=== PATIENT | female | born 1970 | race African-American/Black ===

== ENCOUNTER 2016-07-29 13:25 | Emergency (ER) | payer MEDICAID ==
[~2016-07-29] VITALS: Ht 152.4 cm; Wt 72.6 kg
[~2016-07-29 13:25] MED LIST: RIVA20TA PO; TRAM50TA2 PO
--- NOTE | 2016-07-29 13:41 | NUR ---
DR ESPINOZA AT THE BEDSIDE FOR EVAL AND EXAM.
[2016-07-29 13:45] VITALS: BP 115/62
--- NOTE | 2016-07-29 13:56 | NUR ---
Patient discharged to home in stable conditon. Written and verbal after care instructions given. Patient verbalizes understanding of instructions.
== END 2016-07-29 13:57 | disposition home or self-care (01) ==
LOC: ER 13:25
DX: S91.204A Unspecified open wound of right lesser toe(s) with damage to nail, initial encounter (principal); F10.20 Alcohol dependence, uncomplicated; F17.200 Nicotine dependence, unspecified, uncomplicated; G43.909 Migraine, unspecified, not intractable, without status migrainosus; X58.XXXA Exposure to other specified factors, initial encounter; Y93.89 Activity, other specified; Y99.8 Other external cause status; Y92.89 Other specified places as the place of occurrence of the external cause
CPT/HCPCS: 99283; A4663

== ENCOUNTER 2016-11-21 12:23 | Emergency (ER) | payer MEDICAID, OTHER ==
[~2016-11-21] VITALS: Ht 165.1 cm; Wt 72.6 kg
--- NOTE | 2016-11-21 12:40 | NUR ---
PT IS IN ROOM #1B. DR ROACH EVALUATED THE PT.
[2016-11-21] MEDS ORDERED: MORPHINE SULFATE 2 MG/1 ML DISP.SYRIN IV ONE (12:45)
[2016-11-21] MEDS ORDERED: ONDANSETRON 4 MG/2 ML VIAL IV ONE (12:45)
[2016-11-21 13:02] LABS: BASOPHILS % (AUTO) 0.4 % (0.0-2.0); EOSINOPHILS % (AUTO) 0.6 % (0.0-7.0); HEMATOCRIT 31.8 % (37-47); HEMOGLOBIN 10.1 G/DL (12.0-16.0); LYMPHOCYTES # (AUTO) 1.3 K/UL (0.8-4.8); LYMPHOCYTES % (AUTO) 16.2 % (20.5-51.5); MEAN CORPUSCULAR HEMOGLOBIN 25.5 UUG (27.0-31.0); MEAN CORPUSCULAR HGB CONC 32 g/dL (32.0-37.0); MEAN CORPUSCULAR VOLUME 80.4 FL (81.0-99.0); MONOCYTES # (AUTO) 0.4 K/UL (0.1-1.30); MONOCYTES % (AUTO) 4.7 % (0.0-11.0); NEUTROPHILS # (AUTO) 6.3 K/UL (1.8-8.9); NEUTROPHILS % (AUTO) 78.1 % (38.5-71.5); PLATELET COUNT (AUTO) 187 K/UL (150-450); RED BLOOD CELL COUNT(AUTO) 3.95 MIL/UL (4.2-5.4)
[2016-11-21] MEDS ORDERED: MORPHINE SULFATE 4 MG/1 ML DISP.SYRIN ONE ×2 (13:02→14:35)
[2016-11-21] MEDS ORDERED: MORPHINE SULFATE 2 MG/1 ML DISP.SYRIN ONE ×3 (13:02→15:00)
[2016-11-21] MEDS ORDERED: ONDANSETRON 4 MG/2 ML VIAL ONE ×2 (13:03→15:10)
[2016-11-21 13:17] LABS: BILIRUBIN,DIRECT 0.1 mg/dL (0.0-0.2); CREATININE 0.8 mg/dL (0.6-1.3); POTASSIUM 3.2 mmol/L (3.5-5.1)
[2016-11-21 13:44] LABS: BILIRUBIN,TOTAL 0.4 mg/dL (0.1-1.0)
[2016-11-21 13:45] LABS: TOTAL PROTEIN, SERUM 7.4 g/dL (6.4-8.2)
[2016-11-21] MEDS ORDERED: IOHEXOL 300MG/ML 100 ML INFUS..BTL ONE (13:58)
[2016-11-21] MEDS ORDERED: NORMAL SALINE FLUSH 10 ML DISP.SYRIN ONE (13:58)
[2016-11-21] MEDS ORDERED: MORPHINE SULFATE 10 MG/1 ML DISP.SYRIN IV ONE (14:30)
[2016-11-21] MEDS ORDERED: ONDANSETRON IV *ER 4 MG/2 ML VIAL ONE (15:00)
[2016-11-21] MEDS ORDERED: KETOROLAC TROMETHAMINE 15 MG INJ ONE ×2 (15:00→15:11)
[2016-11-21] MEDS ORDERED: GABAPENTIN 300 MG CAPSULE ONE ×2 (15:00→15:11)
[2016-11-21] MEDS ORDERED: MORPHINE SULFATE 10 MG/1 ML DISP.SYRIN ONE (15:00)
[2016-11-21] MEDS ORDERED: ONDANSETRON IV *ER 4 MG/2 ML VIAL IV ONE (15:00)
[2016-11-21] MEDS ORDERED: KETOROLAC TROMETHAMINE 15 MG INJ IVP ONE (15:00)
[2016-11-21] MEDS ORDERED: GABAPENTIN 300 MG CAPSULE PO ONE (15:00)
--- NOTE | 2016-11-21 15:27 | NUR ---
Information for higher level of care transfer faxed to [facility], awaiting response from their MD.
[2016-11-21 16:00] LABS: *BILIRUBIN,URIN NEGATIVE (NEGATIVE); *BLOOD, URINE Trace-intact (NEGATIVE); *CLARITY,URINE CLEAR (CLEAR); *COLOR,URINE YELLOW (YELLOW); *KETONES,URINE NEGATIVE (NEGATIVE); *PROTEIN,URINE TRACE (NEGATIVE); *UROBILINOGEN,URINE 0.2 E.U./dl (NORMAL); LEUKOCYTE ESTERASE ,URINE NEGATIVE (NEGATIVE); NITRITE, URINE NEGATIVE (NEGATIVE); UGLUCOSE NEGATIVE (NEGATIVE)
--- NOTE | 2016-11-21 16:06 | NUR ---
Call placed to [facility] for transfer status, awaiting accepting MD. LAN notified.
[2016-11-21 16:10] LABS: *URINE HCG, QUAL NEGATIVE (NEGATIVE); MUCUS,URINE FEW /LPF (0-FEW); SQUAMOUS EPITHELIAL CELL,UR FEW /HPF (NONE SEEN); WBC,URINE 0-3 /HPF (0-3)
--- NOTE | 2016-11-21 16:21 | NUR ---
pt is accepted by Dr Tucker from [facility]. [facility] was called to transfer the pt according to trauma surgion request. nursing dock operations supervisor notified.
--- NOTE | 2016-11-21 16:29 | NUR ---
[facility] WAS CALL[facility] . PT WAS TRANSFERED TO [facility] ACCORDING TO DR ROACH ORDERS. REPORT WAS GIVEN TO [facility].
== END 2016-11-21 16:33 | disposition short-term general hospital (02) ==
LOC: ER 12:23
DX: S27.321A Contusion of lung, unilateral, initial encounter (principal); F17.200 Nicotine dependence, unspecified, uncomplicated; G43.909 Migraine, unspecified, not intractable, without status migrainosus; V89.2XXA Person injured in unspecified motor-vehicle accident, traffic, initial encounter; Y93.89 Activity, other specified; Y92.9 Unspecified place or not applicable; Y99.9 Unspecified external cause status
CPT/HCPCS: 36415; 70030-TC; 70450; 71010; 71260; 72125; 73590; 84703; 85025; 85730; 86850; 86900; 86901; 93005; A4663; J1885; J2270; J2405

== ENCOUNTER 2017-04-07 11:36 | Emergency (ER) | payer MEDICAID, OTHER ==
[~2017-04-07] VITALS: Ht 165.1 cm; Wt 63.5 kg
[2017-04-07] MEDS: KETOROLAC TROMETHAMINE 30 MG INJ IM ONE (11:57)
[2017-04-07] MEDS: CARISOPRODOL 350 MG TABLET PO ONE (11:58)
--- NOTE | 2017-04-07 12:03 | NUR ---
Patient discharged to home in stable conditon. Written and verbal after care instructions given. Patient verbalizes understanding of instructions.pt needs more time in ed so she feels comfortable to walk.
[2017-04-07] MEDS ORDERED: KETOROLAC TROMETHAMINE 30 MG INJ ONE (12:10)
[2017-04-07] MEDS ORDERED: CARISOPRODOL 350 MG TABLET ONE (12:11)
--- NOTE | 2017-04-07 12:58 | NUR ---
pt says feels better. 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
[2017-04-07 13:00] VITALS: BP 119/81
== END 2017-04-07 13:00 | disposition home or self-care (01) ==
LOC: ER 11:36
DX: M54.40 Lumbago with sciatica, unspecified side (principal); F17.200 Nicotine dependence, unspecified, uncomplicated; G43.909 Migraine, unspecified, not intractable, without status migrainosus
CPT/HCPCS: 96372; 99283; A4663; J1885

== ENCOUNTER 2017-05-09 14:30 | Emergency (ER) | payer MEDICAID ==
[~2017-05-09] VITALS: Ht 165.1 cm; Wt 63.5 kg
[2017-05-09] MEDS ORDERED: ONDA4TAB5 PO (14:39)
[2017-05-09] MEDS ORDERED: HYDR-548 PO (14:39)
[2017-05-09 15:24] VITALS: BP 117/71
== END 2017-05-09 15:27 | disposition home or self-care (01) ==
LOC: ER 14:33
DX: M79.671 Pain in right foot (principal); F17.200 Nicotine dependence, unspecified, uncomplicated; G43.909 Migraine, unspecified, not intractable, without status migrainosus
CPT/HCPCS: A4663

== ENCOUNTER 2017-09-01 18:24 | Emergency (ER) | payer MEDICAID ==
[~2017-09-01] VITALS: Ht 165.1 cm; Wt 63.5 kg
[~2017-09-01 18:24] MED LIST changes: +HYDR-548 PO; +ONDA4TAB5 PO
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
--- NOTE | 2017-09-01 19:35 | NUR ---
DR ELOY NAVARRO MD AT BEDSIDE FOR MSE.
--- NOTE | 2017-09-01 20:02 | NUR ---
RADIOLOGY AT BEDSIDE FOR XRAY.
[2017-09-01] MEDS ORDERED: AZITHROMYCIN 250 MG TABLET PO ONE (20:30)
[2017-09-01] MEDS ORDERED: AZITHROMYCIN 250 MG TABLET ONE (20:37)
--- NOTE | 2017-09-01 20:52 | NUR ---
Patient discharged to home in stable conditon. Written and verbal after care instructions given. Patient verbalizes understanding of instructions. Pt ambulated from ER w/ stead gait. Denies n/v sob, or pain. No distress noted. Pt took all personal belongings.
[2017-09-01 20:57] VITALS: BP 112/70
== END 2017-09-01 21:06 | disposition home or self-care (01) ==
LOC: ER 18:26
DX: J06.9 Acute upper respiratory infection, unspecified (principal); R05 Cough; F17.200 Nicotine dependence, unspecified, uncomplicated; G43.909 Migraine, unspecified, not intractable, without status migrainosus
CPT/HCPCS: 71045; A4663; Q0144

== ENCOUNTER 2018-03-09 19:04 | Emergency (ER) | payer MEDICAID ==
[~2018-03-09] VITALS: Ht 165.1 cm; Wt 68.0 kg
[~2018-03-09 19:04] MED LIST changes: +HYDR-4354 PO; -HYDR-548 PO
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
--- NOTE | 2018-03-09 19:35 | NUR ---
RAMON MONTERO AT BEDSIDE FOR MSE.
--- NOTE | 2018-03-09 19:54 | NUR ---
PT TAKEN TO RADIOLOGY FOR CT SCAN.
--- NOTE | 2018-03-09 20:08 | NUR ---
PT BACK IN DEPARTMENT FROM RADIOLOGY.
[2018-03-09] MEDS ORDERED: IBUPROFEN 600 MG TABLET ONE (20:43)
[2018-03-09] MEDS ORDERED: IBUPROFEN 600 MG TABLET PO ONE (20:45)
--- NOTE | 2018-03-09 21:08 | NUR ---
Patient discharged to home in stable conditon. Written and verbal after care instructions given. Patient verbalizes understanding of instructions. Walked out of ER with no distress noted
[2018-03-09 21:09] VITALS: BP 128/66
== END 2018-03-09 21:09 | disposition home or self-care (01) ==
LOC: ER 19:06
DX: S16.1XXA Strain of muscle, fascia and tendon at neck level, initial encounter (principal); F17.200 Nicotine dependence, unspecified, uncomplicated; V89.2XXA Person injured in unspecified motor-vehicle accident, traffic, initial encounter; Y93.89 Activity, other specified; Y92.89 Other specified places as the place of occurrence of the external cause; Y99.8 Other external cause status
CPT/HCPCS: 72125; A4663

== ENCOUNTER 2018-04-01 18:08 | Emergency (ER) | payer MEDICAID ==
[~2018-04-01] VITALS: Ht 165.1 cm; Wt 63.5 kg
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
--- NOTE | 2018-04-01 19:32 | NUR ---
Patient discharged to home in stable conditon. Written and verbal after care instructions given. Patient verbalizes understanding of instructions.
== END 2018-04-01 19:33 | disposition home or self-care (01) ==
LOC: ER 18:10
DX: M25.511 Pain in right shoulder (principal); Z71.6 Tobacco abuse counseling; F17.290 Nicotine dependence, other tobacco product, uncomplicated; Z79.891 Long term (current) use of opiate analgesic; Z79.899 Other long term (current) drug therapy
CPT/HCPCS: A4663

== ENCOUNTER 2018-05-06 18:39 | Inpatient (IN) | payer MEDICAID ==
[~2018-05-06] VITALS: Ht 165.1 cm; Wt 72.6 kg
[2018-05-06] MEDS ORDERED: GABA300C PO (18:51)
[2018-05-06] MEDS ORDERED: D-ME118S12 PO (18:51)
[2018-05-06] MEDS ORDERED: KETOROLAC TROMETHAMINE 15 MG INJ IV ONE (19:15)
[2018-05-06] MEDS ORDERED: ONDANSETRON 4 MG/2 ML VIAL IV ONE (19:15)
[2018-05-06] MEDS ORDERED: OXYCODONE/APAP 5-325 MG TABLET PO ONE ×2 (19:15→20:30)
[2018-05-06] MEDS ORDERED: IV NORMAL SALINE 1000 ML BAG IV ONE (19:15)
[2018-05-06] MEDS ORDERED: ONDANSETRON 4 MG/2 ML VIAL ONE ×2 (19:40→20:36)
[2018-05-06] MEDS ORDERED: KETOROLAC TROMETHAMINE 30 MG INJ ONE (19:40)
[2018-05-06 19:44] LABS: *BILIRUBIN,URIN NEGATIVE (NEGATIVE); *BLOOD, URINE Trace-lysed (NEGATIVE); *CLARITY,URINE CLOUDY (CLEAR); *COLOR,URINE YELLOW (YELLOW); *KETONES,URINE NEGATIVE (NEGATIVE); *UROBILINOGEN,URINE 0.2 E.U./dl (NORMAL); LEUKOCYTE ESTERASE ,URINE 1+ (NEGATIVE); NITRITE, URINE NEGATIVE (NEGATIVE); PH,URINE 7.5 (5.0-8.0); UGLUCOSE NEGATIVE (NEGATIVE)
[2018-05-06 19:50] LABS: CREATININE 0.8 mg/dL (0.6-1.3); POTASSIUM 3.9 mmol/L (3.5-5.1)
[2018-05-06 19:51] LABS: *URINE HCG, QUAL NEGATIVE (NEGATIVE)
[2018-05-06] MEDS ORDERED: OXYCODONE/APAP 5-325 MG TABLET ONE ×2 (19:54→20:36)
[2018-05-06 19:55] LABS: BASOPHILS % (AUTO) 0.3 % (0.0-2.0); EOSINOPHILS % (AUTO) 0.1 % (0.0-7.0); HEMATOCRIT 32.4 % (31.2-41.9); HEMOGLOBIN 10.3 g/dL (10.9-14.3); LYMPHOCYTES % (AUTO) 15.3 % (20.5-51.5); MEAN CORPUSCULAR HEMOGLOBIN 24.5 uug (24.7-32.8); MEAN CORPUSCULAR HGB CONC 32 g/dL (32.3-35.6); MEAN CORPUSCULAR VOLUME 77.2 fL (75.5-95.3); MONOCYTES # (AUTO) 1.2 K/uL (2.0-10.0); MONOCYTES % (AUTO) 8.7 % (0.0-11.0); NEUTROPHILS # (AUTO) 10.1 K/uL (1.8-8.9); NEUTROPHILS % (AUTO) 75.6 % (38.5-71.5); PLATELET COUNT (AUTO) 206 K/uL (179-408); WHITE BLOOD COUNT (AUTO) 13.4 K/uL (3.8-11.8)
[2018-05-06 20:03] LABS: BACTERIA,URINE MODERATE /HPF (NONE SEEN); SQUAMOUS EPITHELIAL CELL,UR MANY /HPF (NONE SEEN)
[2018-05-06 20:04] LABS: BILIRUBIN,DIRECT 0.1 mg/dL (0.0-0.2); BILIRUBIN,TOTAL 0.4 mg/dL (0.2-1.0); TOTAL PROTEIN, SERUM 7.6 g/dL (6.4-8.2)
[2018-05-06] MEDS ORDERED: NITROFURANTOIN/NITROFURAN MAC 100 MG CAPSULE PO ONE (20:30)
[2018-05-06] MEDS ORDERED: ONDANSETRON IV *ER 4 MG/2 ML VIAL IV ONE (20:30)
[2018-05-06] MEDS ORDERED: CEFTRIAXONE 1 G in IV DEXTROSE 5% 50 ML IV ONE (20:30)
[2018-05-06] MEDS ORDERED: CEFTRIAXONE 1 G VIAL ONE (20:35)
[2018-05-06] MEDS ORDERED: NITROFURANTOIN/NITROFURAN MAC 100 MG CAPSULE ONE (20:36)
[2018-05-06] MEDS ORDERED: TRAMADOL HCL 50 MG TABLET PO PRN (21:45)
[2018-05-06] MEDS ORDERED: IV NS 1000 ML 1,000 ML IV PRN (22:06)
[2018-05-06] MEDS ORDERED: ONDANSETRON 4 MG/2 ML VIAL IV PRN (22:15)
[2018-05-06] MEDS ORDERED: ACETAMINOPHEN 325 MG TABLET PO PRN (22:15)
[2018-05-06] MEDS ORDERED: IBUPROFEN 600 MG TABLET PO PRN (22:15)
[2018-05-06] MEDS ORDERED: Z GUARD REMEDY PASTE 57 GM TUBE TOP PRN (22:15)
[2018-05-06 22:56] VITALS: BP 106/63
[2018-05-07 04:00] VITALS: BP 115/57
[2018-05-07 05:54] LABS: BASOPHILS % (AUTO) 0.4 % (0.0-2.0); EOSINOPHILS # (AUTO) 0.1 K/uL (0.0-0.7); EOSINOPHILS % (AUTO) 0.9 % (0.0-7.0); HEMATOCRIT 28.3 % (31.2-41.9); HEMOGLOBIN 9.1 g/dL (10.9-14.3); LYMPHOCYTES # (AUTO) 2.4 K/uL (20.0-40.0); LYMPHOCYTES % (AUTO) 25.7 % (20.5-51.5); MEAN CORPUSCULAR HEMOGLOBIN 24.8 uug (24.7-32.8); MEAN CORPUSCULAR HGB CONC 32 g/dL (32.3-35.6); MEAN CORPUSCULAR VOLUME 77.5 fL (75.5-95.3); MONOCYTES # (AUTO) 1.3 K/uL (2.0-10.0); MONOCYTES % (AUTO) 14.3 % (0.0-11.0); NEUTROPHILS # (AUTO) 5.5 K/uL (1.8-8.9); NEUTROPHILS % (AUTO) 58.7 % (38.5-71.5); PLATELET COUNT (AUTO) 165 K/uL (179-408); RED BLOOD CELL COUNT(AUTO) 3.65 MIL/uL (3.63-4.92); WHITE BLOOD COUNT (AUTO) 9.3 K/uL (3.8-11.8)
[2018-05-07 06:08] LABS: CREATININE 0.7 mg/dL (0.6-1.3); MAGNESIUM 2.2 mg/dL (1.8-2.4); PHOSPHOROUS 3.8 mg/dL (2.5-4.9); POTASSIUM 3.7 mmol/L (3.5-5.1)
[2018-05-07] MEDS: GABAPENTIN 300 MG CAPSULE PO SCH ×2 (08:46→13:45)
[2018-05-07] MEDS ORDERED: FAMO20TA8 PO (10:32)
[2018-05-07] MEDS ORDERED: RIVAROXABAN 15 MG TABLET PO SCH (10:32)
[2018-05-07] MEDS ORDERED: AZIT250T13 PO (10:32)
[2018-05-07] MEDS ORDERED: ALBU18HF2 INH (10:32)
[2018-05-07] MEDS ORDERED: ALBUTEROL SULFATE 8 GM HFA.AER.AD INH PRN (11:30)
[2018-05-07 11:35] VITALS: BP 112/61
[2018-05-07] MEDS ORDERED: ALBUTEROL SULFATE 2.5 MG/3 ML NEBU NEB PRN (11:45)
[2018-05-07] MEDS ORDERED: GUAIFENESIN/DEXTROMETHORPHAN 5 ML UDC PO PRN (13:00)
[2018-05-07] MEDS ORDERED: FAMOTIDINE 20 MG TABLET PO ONE (13:15)
[2018-05-07] MEDS ORDERED: FAMOTIDINE 20 MG TABLET PO SCH (17:00)
[2018-05-07] MEDS ORDERED: CEFTRIAXONE 1 G in IV DEXTROSE 5% 50 ML IV SCH (21:00)
== END 2018-05-07 15:20 | disposition home or self-care (01) | DRG 463 ==
LOC: ER 18:41 → MED 21:41
PROVIDERS: ADMIT Nurse Practitioner Acute Care; ATTEND Registered Nurse
DX: N10 Acute pyelonephritis (principal); E66.9 Obesity, unspecified; B96.89 Other specified bacterial agents as the cause of diseases classified elsewhere; G89.29 Other chronic pain; M54.5 Low back pain; Z86.718 Personal history of other venous thrombosis and embolism; Z79.01 Long term (current) use of anticoagulants; G43.909 Migraine, unspecified, not intractable, without status migrainosus; F17.200 Nicotine dependence, unspecified, uncomplicated; J40 Bronchitis, not specified as acute or chronic; Z68.26 Body mass index [BMI] 26.0-26.9, adult; Z71.3 Dietary counseling and surveillance; R53.1 Weakness; Z79.899 Other long term (current) drug therapy; L02.91 Cutaneous abscess, unspecified; N39.0 Urinary tract infection, site not specified
CPT/HCPCS: 36415; 71045; 83690; 83735; 84100; 84703; 85025; 85730; 93005; A4663; G0378; J0696; J1885; J2405; J7030; J7060

== ENCOUNTER 2018-05-28 02:46 | Emergency (ER) | payer MEDICAID, OTHER ==
[~2018-05-28] VITALS: Ht 165.1 cm; Wt 72.6 kg
[~2018-05-28 02:46] MED LIST changes: +ALBU18HF2 INH; +D-ME118S12 PO; +FAMO20TA8 PO; +GABA300C PO; -HYDR-4354 PO; -ONDA4TAB5 PO
[2018-05-28 03:05] VITALS: BP 134/89
--- NOTE | 2018-05-28 03:12 | NUR ---
Patient discharged to home in stable conditon. Written and verbal after care instructions given. Patient verbalizes understanding of instructions.
== END 2018-05-28 03:12 | disposition home or self-care (01) ==
LOC: ER 02:46
DX: S00.261A Insect bite (nonvenomous) of right eyelid and periocular area, initial encounter (principal); L08.9 Local infection of the skin and subcutaneous tissue, unspecified; G89.29 Other chronic pain; M54.9 Dorsalgia, unspecified; F17.200 Nicotine dependence, unspecified, uncomplicated; Z79.891 Long term (current) use of opiate analgesic; Z79.899 Other long term (current) drug therapy; W57.XXXA Bitten or stung by nonvenomous insect and other nonvenomous arthropods, initial encounter; Y93.89 Activity, other specified; Y92.89 Other specified places as the place of occurrence of the external cause; Y99.8 Other external cause status
CPT/HCPCS: A4663

== ENCOUNTER 2018-08-25 15:15 | Emergency (ER) | payer MEDICAID, OTHER ==
[~2018-08-25] VITALS: Ht 165.1 cm; Wt 72.6 kg
[2018-08-25] MEDS ORDERED: MORPHINE SULFATE 4 MG/1 ML DISP.SYRIN ONE (16:11)
[2018-08-25] MEDS ORDERED: ONDANSETRON HCL 4 MG TABLET ONE (16:12)
[2018-08-25] MEDS ORDERED: ONDANSETRON 4 MG/2 ML VIAL IM ONE (16:15)
[2018-08-25] MEDS ORDERED: MORPHINE SULFATE 4 MG/1 ML DISP.SYRIN IM ONE (16:15)
[2018-08-25] MEDS ORDERED: ONDANSETRON ODT 4 MG TAB.RAPDIS SL ONE (16:30)
--- NOTE | 2018-08-25 16:30 | NUR ---
Patient discharged to home in stable conditon. Written and verbal after care instructions given. Patient verbalizes understanding of instructions.
== END 2018-08-25 16:32 | disposition home or self-care (01) ==
LOC: ER 15:17
DX: S69.91XA Unspecified injury of right wrist, hand and finger(s), initial encounter (principal); Z79.899 Other long term (current) drug therapy; X58.XXXA Exposure to other specified factors, initial encounter; Y93.89 Activity, other specified; Y92.89 Other specified places as the place of occurrence of the external cause; Y99.8 Other external cause status
CPT/HCPCS: 96372; 99283; J2270; A4663; Q0162

== ENCOUNTER 2018-10-01 14:20 | Emergency (ER) | payer MEDICAID, OTHER ==
[~2018-10-01] VITALS: Ht 152.4 cm; Wt 68.0 kg
--- NOTE | 2018-10-01 15:17 | NUR ---
PT IS IN ROOM #2A. DR HOOKER EVALUATED THE PT.
--- NOTE | 2018-10-01 16:09 | NUR ---
PT WAS EVALUATED BY DR HOOKER. PT WAS D/C'd TO HOME. D.C INSTRUCTIONS GIVEN TO THE PT.
[2018-10-01 16:12] VITALS: BP 138/78
== END 2018-10-01 16:13 | disposition home or self-care (01) ==
LOC: ER 14:20
DX: L73.9 Follicular disorder, unspecified (principal); K21.9 Gastro-esophageal reflux disease without esophagitis; Z79.899 Other long term (current) drug therapy
CPT/HCPCS: A4663

== ENCOUNTER 2018-11-07 14:32 | Emergency (ER) | payer MEDICAID, OTHER ==
[~2018-11-07] VITALS: Ht 165.1 cm; Wt 63.5 kg
[~2018-11-07 14:32] MED LIST changes: -D-ME118S12 PO; +PROM118S4 PO
--- NOTE | 2018-11-07 15:43 | NUR ---
at bedside to examine patient.
--- NOTE | 2018-11-07 15:53 | NUR ---
Patient in bed resting no distress noted.
[2018-11-07 17:47] VITALS: BP 142/68
[2018-11-07] MEDS ORDERED: ACETAMINOPHEN 325 MG TABLET ONE ×2 (17:56→17:57)
[2018-11-07] MEDS ORDERED: ACETAMINOPHEN 325 MG TABLET PO ONE (18:00)
--- NOTE | 2018-11-07 18:20 | NUR ---
dcd instructions and prescription given to pt. who verbalized understanding. pt. left room AAOX4. pain well controlled. steady gait.
[2018-11-07] MEDS ORDERED: DIAZEPAM 2 MG TABLET PO ONE (18:45)
[2018-11-07] MEDS ORDERED: DIAZEPAM 5 MG TABLET ONE (18:49)
== END 2018-11-07 18:48 | disposition home or self-care (01) ==
LOC: ER 14:32
DX: S16.1XXA Strain of muscle, fascia and tendon at neck level, initial encounter (principal); M62.838 Other muscle spasm; G43.909 Migraine, unspecified, not intractable, without status migrainosus; K21.9 Gastro-esophageal reflux disease without esophagitis; Z79.899 Other long term (current) drug therapy; V49.9XXA Car occupant (driver) (passenger) injured in unspecified traffic accident, initial encounter; Y93.89 Activity, other specified; Y92.410 Unspecified street and highway as the place of occurrence of the external cause; Y99.8 Other external cause status
CPT/HCPCS: 70450; 71045; 72125; 73030; A4663

== ENCOUNTER 2018-12-19 09:01 | Emergency (ER) | payer OTHER ==
[~2018-12-19] VITALS: Ht 165.1 cm; Wt 63.5 kg
--- NOTE | 2018-12-19 09:05 | NUR ---
RAMON MONTERO AT BEDSIDE FOR MSE.
[2018-12-19] MEDS ORDERED: predniSONE 10 MG TABLET PO ONE (09:15)
[2018-12-19] MEDS ORDERED: IPRATROPIUM BROMIDE 0.5 MG/2.5 ML NEBU NEB ONE (09:15)
[2018-12-19] MEDS ORDERED: ALBUTEROL SULFATE 2.5 MG/3 ML NEBU NEB ONE (09:15)
[2018-12-19] MEDS ORDERED: predniSONE 10 MG TABLET ONE (09:16)
[2018-12-19 09:17] LABS: *BILIRUBIN,URIN NEGATIVE (NEGATIVE); *CLARITY,URINE CLEAR (CLEAR); *COLOR,URINE YELLOW (YELLOW); *KETONES,URINE NEGATIVE (NEGATIVE); *UROBILINOGEN,URINE 0.2 E.U./dl (NORMAL); LEUKOCYTE ESTERASE ,URINE NEGATIVE (NEGATIVE); NITRITE, URINE NEGATIVE (NEGATIVE); PH,URINE 5.5 (5.0-8.0); UGLUCOSE NEGATIVE (NEGATIVE)
[2018-12-19] MEDS ORDERED: predniSONE 50 MG TABLET ONE (09:17)
[2018-12-19] MEDS ORDERED: IPRATROPIUM BROMIDE 0.5 MG/2.5 ML NEBU ONE (09:19)
[2018-12-19] MEDS ORDERED: ALBUTEROL SULFATE 2.5 MG/3 ML NEBU ONE ×2 (09:19→09:23)
[2018-12-19 09:24] LABS: *BLOOD, URINE TRACE INTACT (NEGATIVE); SQUAMOUS EPITHELIAL CELL,UR FEW /HPF (NONE SEEN)
[2018-12-19 09:25] LABS: BACTERIA,URINE NONE SEEN /HPF (NONE SEEN); RBC,URINE 0-3 /HPF (0-3); WBC,URINE 0-3 /HPF (0-3)
--- NOTE | 2018-12-19 09:31 | NUR ---
PT IS ON HHN [place], NAD NOTED.
--- NOTE | 2018-12-19 09:56 | NUR ---
RAMON MONTERO AT BEDSIDE FOR PT UPDATE.
--- NOTE | 2018-12-19 10:05 | NUR ---
Patient discharged to home in stable conditon. Written and verbal after care instructions given. Patient verbalizes understanding of instructions.
== END 2018-12-19 10:06 | disposition home or self-care (01) ==
LOC: ER 09:01
DX: J45.909 Unspecified asthma, uncomplicated (principal); K21.9 Gastro-esophageal reflux disease without esophagitis; G43.909 Migraine, unspecified, not intractable, without status migrainosus; Z79.899 Other long term (current) drug therapy
CPT/HCPCS: 71045; 81000; 81001; 87086; 94640; 99284; J7512 ×2; A4663; J3590

== ENCOUNTER 2019-01-17 11:17 | Emergency (ER) | payer OTHER ==
[~2019-01-17] VITALS: Ht 165.1 cm; Wt 63.5 kg
[2019-01-17] MEDS ORDERED: IPRATROPIUM BROMIDE 0.5 MG/2.5 ML NEBU ONE (11:59)
[2019-01-17] MEDS ORDERED: ALBUTEROL SULFATE 2.5 MG/ 0.5 ML NEBU ONE (12:00)
[2019-01-17] MEDS ORDERED: IPRATROPIUM BROMIDE 0.5 MG/2.5 ML NEBU NEB ONE (12:00)
[2019-01-17] MEDS ORDERED: ALBUTEROL SULFATE 2.5 MG/3 ML NEBU NEB ONE (12:00)
[2019-01-17] MEDS ORDERED: methylPREDNISolone SOD SUCC 125 MG/2 ML VIAL IV ONE (12:00)
[2019-01-17 12:02] LABS: BASOPHILS % (AUTO) 0.6 % (0.0-2.0); EOSINOPHILS # (AUTO) 0.1 K/uL (0.0-0.7); EOSINOPHILS % (AUTO) 0.9 % (0.0-7.0); HEMATOCRIT 35.1 % (31.2-41.9); HEMOGLOBIN 11.3 g/dL (10.9-14.3); LYMPHOCYTES # (AUTO) 1.6 K/uL (20.0-40.0); LYMPHOCYTES % (AUTO) 21.6 % (20.5-51.5); MEAN CORPUSCULAR HEMOGLOBIN 27.6 uug (24.7-32.8); MEAN CORPUSCULAR HGB CONC 32 g/dL (32.3-35.6); MEAN CORPUSCULAR VOLUME 85.6 fL (75.5-95.3); MONOCYTES # (AUTO) 0.6 K/uL (2.0-10.0); MONOCYTES % (AUTO) 7.6 % (0.0-11.0); NEUTROPHILS # (AUTO) 5.2 K/uL (1.8-8.9); NEUTROPHILS % (AUTO) 69.3 % (38.5-71.5); PLATELET COUNT (AUTO) 162 K/uL (179-408); WHITE BLOOD COUNT (AUTO) 7.5 K/uL (3.8-11.8)
[2019-01-17] MEDS ORDERED: methylPREDNISolone SOD SUCC 125 MG/2 ML VIAL ONE (12:04)
[2019-01-17 12:09] LABS: CREATININE 0.7 mg/dL (0.6-1.3); POTASSIUM 3.6 mmol/L (3.5-5.1)
[2019-01-17 12:15] LABS: BILIRUBIN,DIRECT 0.1 mg/dL (0.0-0.2); BILIRUBIN,TOTAL 0.6 mg/dL (0.2-1.0); TOTAL PROTEIN, SERUM 6.9 g/dL (6.4-8.2)
--- NOTE | 2019-01-17 12:58 | NUR ---
Patient is resting comfortably on gurney, NAD.
--- NOTE | 2019-01-17 13:19 | NUR ---
IV removed. Catheter intact and site benign. Pressure and 4x4 gauze applied to site. No bleeding noted. Patient discharged to home in stable conditon. Written and verbal after care instructions given to patient. Patient verbalizes understanding of instructions.
[2019-01-17 13:24] LABS: *URINE HCG, QUAL NEGATIVE (NEGATIVE)
== END 2019-01-17 13:19 | disposition home or self-care (01) ==
LOC: ER 11:17
DX: J45.901 Unspecified asthma with (acute) exacerbation (principal); G43.909 Migraine, unspecified, not intractable, without status migrainosus; K21.9 Gastro-esophageal reflux disease without esophagitis; Z79.899 Other long term (current) drug therapy
CPT/HCPCS: 36415; 71046; 80048; 80076; 84484; 84703; 85025; 93005; 94644; 96374; 99285; J2930; 70030-TC; A4663; J3590

== ENCOUNTER 2019-01-25 21:17 | Emergency (ER) | payer OTHER ==
[~2019-01-25] VITALS: Ht 165.1 cm; Wt 63.5 kg
--- NOTE | 2019-01-25 23:12 | NUR ---
Call placed to [facility] for round trip to [place] [facility] for CT, ETA 0110, Trip #[id number].
[2019-01-25] MEDS ORDERED: METOCLOPRAMIDE HCL 10 MG/2 ML VIAL IM ONE (23:15)
[2019-01-25] MEDS ORDERED: PSEUDOEPHEDRINE HCL 30 MG TABLET PO ONE (23:15)
[2019-01-25] MEDS ORDERED: diphenhydrAMINE 50 MG/1 ML VIAL IM ONE (23:15)
[2019-01-25] MEDS ORDERED: diphenhydrAMINE 25 MG CAP PO ONE (23:40)
[2019-01-25] MEDS ORDERED: PSEUDOEPHEDRINE HCL 30 MG TABLET ONE (23:41)
[2019-01-26] MEDS ORDERED: HYDROCODONE/APAP 5-325MG TABLET ONE (00:17)
[2019-01-26] MEDS ORDERED: HYDROCODONE/APAP 5-325MG TABLET PO ONE (00:30)
[2019-01-26 02:28] VITALS: BP 116/62
== END 2019-01-26 02:30 | disposition home or self-care (01) ==
LOC: ER 21:18
DX: G43.909 Migraine, unspecified, not intractable, without status migrainosus (principal); J40 Bronchitis, not specified as acute or chronic; K21.9 Gastro-esophageal reflux disease without esophagitis; Z79.899 Other long term (current) drug therapy
CPT/HCPCS: 70450; 96372 ×2; 99284; Q0163; A4663

== ENCOUNTER 2019-03-14 15:25 | Emergency (ER) | payer OTHER ==
[~2019-03-14] VITALS: Ht 165.1 cm; Wt 63.5 kg
[2019-03-14] MEDS ORDERED: HYDROMORPHONE 1 MG/1 ML DISP.SYRIN IV ONE (16:30)
[2019-03-14] MEDS ORDERED: IV NORMAL SALINE 1000 ML BAG IV ONE (16:30)
[2019-03-14] MEDS ORDERED: KETOROLAC TROMETHAMINE 30 MG INJ IVP ONE (16:30)
[2019-03-14] MEDS ORDERED: ONDANSETRON 4 MG/2 ML VIAL IV ONE (16:30)
[2019-03-14 16:39] LABS: *CLARITY,URINE CLEAR (CLEAR); *COLOR,URINE YELLOW (YELLOW); *KETONES,URINE TRACE (NEGATIVE); *UROBILINOGEN,URINE 0.2 E.U./dl (NORMAL); LEUKOCYTE ESTERASE ,URINE NEGATIVE (NEGATIVE); NITRITE, URINE NEGATIVE (NEGATIVE); UGLUCOSE NEGATIVE (NEGATIVE)
[2019-03-14] MEDS ORDERED: KETOROLAC TROMETHAMINE 30 MG INJ ONE (16:42)
[2019-03-14] MEDS ORDERED: ONDANSETRON 4 MG/2 ML VIAL ONE (16:42)
[2019-03-14] MEDS ORDERED: HYDROMORPHONE 1 MG/1 ML DISP.SYRIN ONE (16:42)
[2019-03-14 16:44] LABS: BASOPHILS % (AUTO) 0.5 % (0.0-2.0); EOSINOPHILS % (AUTO) 0.5 % (0.0-7.0); HEMATOCRIT 39.6 % (31.2-41.9); HEMOGLOBIN 12.7 g/dL (10.9-14.3); LYMPHOCYTES # (AUTO) 2.3 K/uL (20.0-40.0); LYMPHOCYTES % (AUTO) 30.4 % (20.5-51.5); MEAN CORPUSCULAR HEMOGLOBIN 27.9 uug (24.7-32.8); MEAN CORPUSCULAR HGB CONC 32 g/dL (32.3-35.6); MEAN CORPUSCULAR VOLUME 86.9 fL (75.5-95.3); MONOCYTES # (AUTO) 0.6 K/uL (2.0-10.0); MONOCYTES % (AUTO) 8.1 % (0.0-11.0); NEUTROPHILS # (AUTO) 4.6 K/uL (1.8-8.9); NEUTROPHILS % (AUTO) 60.5 % (38.5-71.5); PLATELET COUNT (AUTO) 178 K/uL (179-408); RED BLOOD CELL COUNT(AUTO) 4.56 MIL/uL (3.63-4.92); WHITE BLOOD COUNT (AUTO) 7.6 K/uL (3.8-11.8)
[2019-03-14 16:45] LABS: *URINE HCG, QUAL NEGATIVE (NEGATIVE)
[2019-03-14 16:47] LABS: *BILIRUBIN,URIN 1+ (NEGATIVE); *BLOOD, URINE TRACE (NEGATIVE)
[2019-03-14 16:54] LABS: CREATININE 0.8 mg/dL (0.6-1.3); POTASSIUM 3.5 mmol/L (3.5-5.1)
[2019-03-14 17:00] LABS: BILIRUBIN,DIRECT 0.1 mg/dL (0.0-0.2); BILIRUBIN,TOTAL 0.6 mg/dL (0.2-1.0); TOTAL PROTEIN, SERUM 7.5 g/dL (6.4-8.2)
[2019-03-14 17:06] LABS: WBC,URINE 0-3 /HPF (0-3)
--- NOTE | 2019-03-14 17:06 | NUR ---
PT IS IN ROOM #1A. DR MEDEIROS EVALUATED THE PT.
[2019-03-14 17:08] LABS: BACTERIA,URINE FEW /HPF (NONE SEEN); SQUAMOUS EPITHELIAL CELL,UR MODERATE /HPF (NONE SEEN)
[2019-03-14 17:09] LABS: MUCUS,URINE MANY /LPF (0-FEW)
[2019-03-14] MEDS ORDERED: IOHEXOL 300MG/ML 100 ML INFUS..BTL ONE (17:41)
[2019-03-14] MEDS ORDERED: IV NORMAL SALINE 250 ML IV ONE (17:41)
[2019-03-14] MEDS ORDERED: SWABABLE VALVE TRANSFER SET EA MC ONE (17:41)
--- NOTE | 2019-03-14 19:18 | NUR ---
Pt back to ER from CT.
--- NOTE | 2019-03-14 20:18 | NUR ---
Pt c/o pain and nausea. MD made aware.
--- NOTE | 2019-03-14 23:10 | NUR ---
Patient discharged to home in stable conditon. Written and verbal after care instructions given. Patient verbalizes understanding of instructions. Pt ambulated out of ER with steady gait, no acute signs of distress, VSS, all belongings taken, IV site discontinued.
[2019-03-14 23:12] VITALS: BP 106/62
== END 2019-03-14 23:13 | disposition home or self-care (01) ==
LOC: ER 15:28
DX: R10.9 Unspecified abdominal pain (principal); M54.9 Dorsalgia, unspecified; R11.10 Vomiting, unspecified; K21.9 Gastro-esophageal reflux disease without esophagitis; Z79.899 Other long term (current) drug therapy
CPT/HCPCS: 36415; 74177; 76856; 80048; 80076; 81000; 81001; 83690; 84703; 85025; 87086; 96361; 96374; 96375; 99284; J1170; J1885; J2405; Q9967; A4663; J7030; J7050

== ENCOUNTER 2019-04-23 10:32 | Emergency (ER) | payer OTHER ==
[~2019-04-23] VITALS: Ht 165.1 cm; Wt 63.5 kg
[2019-04-23] MEDS ORDERED: predniSONE 10 MG TABLET PO ONE (11:00)
[2019-04-23] MEDS ORDERED: ALBUTEROL SULFATE 2.5 MG/3 ML NEBU NEB ONE (11:00)
[2019-04-23] MEDS ORDERED: IPRATROPIUM BROMIDE 0.5 MG/2.5 ML NEBU NEB ONE (11:00)
--- NOTE | 2019-04-23 11:07 | NUR ---
STATED SHE ALSO HAS A UTI - DR RAMÍREZ NOTIFIED.
[2019-04-23] MEDS ORDERED: IPRATROPIUM BROMIDE 0.5 MG/2.5 ML NEBU ONE (11:08)
[2019-04-23] MEDS ORDERED: ALBUTEROL SULFATE 2.5 MG/3 ML NEBU ONE (11:08)
[2019-04-23] MEDS ORDERED: predniSONE 10 MG TABLET ONE (11:16)
[2019-04-23 12:01] LABS: *BILIRUBIN,URIN NEGATIVE (NEGATIVE); *BLOOD, URINE NEGATIVE (NEGATIVE); *CLARITY,URINE CLEAR (CLEAR); *COLOR,URINE YELLOW (YELLOW); *KETONES,URINE NEGATIVE (NEGATIVE); *UROBILINOGEN,URINE 0.2 E.U./dl (NORMAL); LEUKOCYTE ESTERASE ,URINE NEGATIVE (NEGATIVE); NITRITE, URINE NEGATIVE (NEGATIVE); UGLUCOSE NEGATIVE (NEGATIVE)
--- NOTE | 2019-04-23 12:32 | NUR ---
Patient discharged to home in stable conditon. Written and verbal after care instructions given. Patient verbalizes understanding of instructions.PT WALKS I NSTEADY GAIT. PT SAYS FEELS BETTER, BREATHING NORMALLY, O2 SAT 98%.
[2019-04-23 12:34] VITALS: BP 111/68
== END 2019-04-23 12:35 | disposition home or self-care (01) ==
LOC: ER 10:32
DX: J45.901 Unspecified asthma with (acute) exacerbation (principal); G89.29 Other chronic pain; M54.9 Dorsalgia, unspecified; K21.9 Gastro-esophageal reflux disease without esophagitis; Z79.899 Other long term (current) drug therapy
CPT/HCPCS: 81001; 94640; 99283; J7512; A4663; J3590

== ENCOUNTER 2019-07-03 21:30 | Emergency (ER) | payer OTHER ==
[~2019-07-03] VITALS: Ht 165.1 cm; Wt 59.0 kg
--- NOTE | 2019-07-03 22:03 | NUR ---
Dr. Barnard at bedside for MSE
--- NOTE | 2019-07-03 22:10 | NUR ---
Patient discharged to home in stable conditon. Written and verbal after care instructions given. Patient verbalizes understanding of instructions. Patient ambulating with steady gait. NAD noted.
[2019-07-03 22:15] VITALS: BP 116/75
== END 2019-07-03 22:10 | disposition home or self-care (01) ==
LOC: ER 21:35
DX: H92.03 Otalgia, bilateral (principal); K21.9 Gastro-esophageal reflux disease without esophagitis; Z86.718 Personal history of other venous thrombosis and embolism; Z79.899 Other long term (current) drug therapy; Z79.01 Long term (current) use of anticoagulants
CPT/HCPCS: A4663

== ENCOUNTER 2019-10-08 15:32 | Emergency (ER) | payer OTHER ==
[~2019-10-08] VITALS: Ht 165.1 cm; Wt 63.5 kg
[~2019-10-08 15:32] MED LIST changes: -PROM118S4 PO; +PROM118S5 PO
--- NOTE | 2019-10-08 15:55 | NUR ---
PT IS IN ROOM #2B. DR REINA EVALUATED THE PT.
[2019-10-08] MEDS ORDERED: KETOROLAC TROMETHAMINE 15 MG INJ IM ONE (16:15)
[2019-10-08] MEDS ORDERED: KETOROLAC TROMETHAMINE 15 MG INJ ONE (16:20)
--- NOTE | 2019-10-08 17:08 | NUR ---
PT WAS D/C'd TO HOME. D/C INSTRUCTIONS GIVEN TO THE PT BY DR REINA.
[2019-10-08 17:10] VITALS: BP 132/77
== END 2019-10-08 17:12 | disposition home or self-care (01) ==
LOC: ER 15:36
DX: S66.911A Strain of unspecified muscle, fascia and tendon at wrist and hand level, right hand, initial encounter (principal); X50.9XXA Other and unspecified overexertion or strenuous movements or postures, initial encounter; W22.8XXA Striking against or struck by other objects, initial encounter; Y92.89 Other specified places as the place of occurrence of the external cause; Z86.718 Personal history of other venous thrombosis and embolism; Z79.01 Long term (current) use of anticoagulants; G89.29 Other chronic pain; M54.9 Dorsalgia, unspecified; K21.9 Gastro-esophageal reflux disease without esophagitis; Z79.899 Other long term (current) drug therapy
CPT/HCPCS: 73130; 96372; 99283; J1885; A4663

== ENCOUNTER 2020-01-25 14:08 | Emergency (ER) | payer OTHER ==
[~2020-01-25] VITALS: Ht 160 cm; Wt 63.5 kg
[2020-01-25 14:28] LABS: *BILIRUBIN,URIN NEGATIVE (NEGATIVE); *BLOOD, URINE NEGATIVE (NEGATIVE); *COLOR,URINE YELLOW (YELLOW); *KETONES,URINE NEGATIVE (NEGATIVE); LEUKOCYTE ESTERASE ,URINE NEGATIVE (NEGATIVE); NITRITE, URINE NEGATIVE (NEGATIVE); UGLUCOSE NEGATIVE (NEGATIVE)
[2020-01-25 14:36] LABS: *CLARITY,URINE SLIGHTLY HAZY (CLEAR); BACTERIA,URINE NONE SEEN /HPF (NONE SEEN); SQUAMOUS EPITHELIAL CELL,UR MODERATE /HPF (NONE SEEN); WBC,URINE 0-3 /HPF (0-3)
[2020-01-25 14:41] LABS: *URINE HCG, QUAL NEGATIVE (NEGATIVE)
[2020-01-25] MEDS ORDERED: KETOROLAC TROMETHAMINE 15 MG INJ IM ONE (15:15)
[2020-01-25] MEDS ORDERED: ACETAMINOPHEN 325 MG TABLET PO ONE (15:15)
[2020-01-25] MEDS ORDERED: ACETAMINOPHEN 325 MG TABLET ONE (15:19)
[2020-01-25] MEDS ORDERED: KETOROLAC TROMETHAMINE 15 MG INJ ONE (15:19)
== END 2020-01-25 15:27 | disposition home or self-care (01) ==
LOC: ER 14:08
DX: M54.5 Low back pain (principal); R30.0 Dysuria; Z86.718 Personal history of other venous thrombosis and embolism; Z79.01 Long term (current) use of anticoagulants; G89.29 Other chronic pain; K21.9 Gastro-esophageal reflux disease without esophagitis
CPT/HCPCS: 81001; 84703; 96372; 99283; J1885; A4663

== ENCOUNTER 2020-05-18 17:54 | Emergency (ER) | payer OTHER ==
[~2020-05-18] VITALS: Ht 165.1 cm; Wt 63.5 kg
--- NOTE | 2020-05-18 19:10 | NUR ---
Dr. Barba at bedside for MSE.
[2020-05-18] MEDS ORDERED: KETOROLAC TROMETHAMINE 60 MG INJ IM ONE ×2 (19:30→19:34)
[2020-05-18] MEDS ORDERED: MECLIZINE HCL 25 MG TABLET ONE (19:41)
[2020-05-18] MEDS ORDERED: MECLIZINE HCL 25 MG TABLET PO ONE (19:45)
--- NOTE | 2020-05-18 19:47 | NUR ---
Pt provided urine sample, sent to lab.
[2020-05-18 19:54] LABS: *URINE HCG, QUAL NEGATIVE (NEGATIVE)
--- NOTE | 2020-05-18 21:21 | NUR ---
Patient discharged to home in stable condition. Written and verbal after care instructions given. Patient verbalizes understanding of instructions. Stressed follow up or return to ER for worsening s/s. Patient out of ER with steady gait, no acute signs of distress, VSS, all belongings taken, provided with copies of labs and xray.
[2020-05-18 21:25] VITALS: BP 118/70
== END 2020-05-18 21:25 | disposition home or self-care (01) ==
LOC: ER 17:54
DX: S33.5XXA Sprain of ligaments of lumbar spine, initial encounter (principal); V43.52XA Car driver injured in collision with other type car in traffic accident, initial encounter; Y92.414 Local residential or business street as the place of occurrence of the external cause; M25.521 Pain in right elbow; M25.511 Pain in right shoulder; K21.9 Gastro-esophageal reflux disease without esophagitis; G89.29 Other chronic pain; Z86.718 Personal history of other venous thrombosis and embolism; Z79.01 Long term (current) use of anticoagulants; Z79.899 Other long term (current) drug therapy
CPT/HCPCS: 72072; 72110; 73030; 73080; 84703; 96372; 99284; J1885; A4663; J8597

== ENCOUNTER 2020-07-31 18:19 | Emergency (ER) | payer MEDICAID, OTHER ==
[~2020-07-31] VITALS: Ht 165.1 cm; Wt 68.0 kg
[~2020-07-31 18:19] MED LIST changes: -ALBU18HF2 INH; -GABA300C PO; -PROM118S5 PO; -TRAM50TA2 PO
[2020-07-31] MEDS ORDERED: KETOROLAC TROMETHAMINE 60 MG INJ IM ONE ×2 (19:45→20:12)
[2020-07-31] MEDS ORDERED: HYDROMORPHONE 1 MG/1 ML DISP.SYRIN IM ONE (19:45)
[2020-07-31] MEDS ORDERED: ONDANSETRON HCL 4 MG TABLET PO ONE ×2 (19:45→20:45)
[2020-07-31] MEDS ORDERED: OXYC-133 PO ×2 (19:51→19:52)
[2020-07-31] MEDS ORDERED: NAPR-1164 PO (19:51)
--- NOTE | 2020-07-31 20:00 | NUR ---
Patient vomiting. Dr Perez aware.
[2020-07-31] MEDS ORDERED: HYDROMORPHONE 1 MG/1 ML DISP.SYRIN ONE (20:12)
[2020-07-31] MEDS ORDERED: ONDANSETRON HCL 4 MG TABLET ONE ×2 (20:12→20:55)
[2020-07-31] MEDS ORDERED: HYDROMORPHONE 2 MG/1 ML DISP.SYRIN ONE (20:12)
[2020-07-31] MEDS ORDERED: ONDA4TAB5 GT (20:32)
--- NOTE | 2020-07-31 21:00 | NUR ---
Patient sleeping with no distress noted.
[2020-07-31 21:26] LABS: *BILIRUBIN,URIN NEGATIVE (NEGATIVE); *CLARITY,URINE CLEAR (CLEAR); *COLOR,URINE YELLOW (YELLOW); *KETONES,URINE NEGATIVE (NEGATIVE); *UROBILINOGEN,URINE 0.2 E.U./dl (NORMAL); LEUKOCYTE ESTERASE ,URINE NEGATIVE (NEGATIVE); NITRITE, URINE NEGATIVE (NEGATIVE); UGLUCOSE NEGATIVE (NEGATIVE)
[2020-07-31 21:27] LABS: *BLOOD, URINE TRACE INTACT (NEGATIVE)
[2020-07-31 22:31] LABS: BACTERIA,URINE NONE SEEN /HPF (NONE SEEN); SQUAMOUS EPITHELIAL CELL,UR FEW /HPF (NONE SEEN); WBC,URINE 0-3 /HPF (0-3)
[2020-07-31 22:32] LABS: MUCUS,URINE MANY /LPF (0-FEW)
--- NOTE | 2020-07-31 22:43 | NUR ---
Patient discharged to home in stable condition with son taking patient home. Written and verbal after care instructions given. Patient verbalizes understanding of instructions. Stressed follow up or return to ER for worsening s/s.
[2020-07-31 22:46] VITALS: BP 126/66
== END 2020-07-31 22:47 | disposition home or self-care (01) ==
LOC: ER 18:23
DX: M54.41 Lumbago with sciatica, right side (principal); Z86.718 Personal history of other venous thrombosis and embolism; Z79.01 Long term (current) use of anticoagulants; K21.9 Gastro-esophageal reflux disease without esophagitis; Z79.899 Other long term (current) drug therapy
CPT/HCPCS: 81001; 96372 ×2; 99284; J1170 ×2; J1885; A4663; Q0162

== ENCOUNTER 2021-04-20 16:56 | Emergency (ER) | payer MEDICAID, OTHER ==
[~2021-04-20] VITALS: Ht 165.1 cm; Wt 63.5 kg
[~2021-04-20 16:56] MED LIST changes: +NAPR-1164 PO; +ONDA4TAB5 GT; +OXYC-133 PO
--- NOTE | 2021-04-20 17:20 | NUR ---
PT SEEN AND EXAMINED BY DR REINA.
[2021-04-20] MEDS ORDERED: PRED20TA PO (17:45)
[2021-04-20] MEDS ORDERED: HYDR-3974 PO (17:45)
[2021-04-20] MEDS ORDERED: CYCL5TAB PO (17:45)
[2021-04-20 17:57] VITALS: BP 122/72
== END 2021-04-20 17:57 | disposition home or self-care (01) ==
LOC: ER 16:58
DX: U07.1 COVID-19 (principal); G89.29 Other chronic pain; M54.41 Lumbago with sciatica, right side; Z86.718 Personal history of other venous thrombosis and embolism; Z79.01 Long term (current) use of anticoagulants; K21.9 Gastro-esophageal reflux disease without esophagitis; Z87.09 Personal history of other diseases of the respiratory system
CPT/HCPCS: 99283; U0003; A4663

== ENCOUNTER 2021-09-10 22:46 | Emergency (ER) | payer OTHER ==
[~2021-09-10] VITALS: Ht 165.1 cm; Wt 68.0 kg
[~2021-09-10 22:46] MED LIST changes: +CYCL5TAB PO; +HYDR-3974 PO; +PRED20TA PO
--- NOTE | 2021-09-11 00:09 | NUR ---
Dr cortés at bedside, MSE in progress.
[2021-09-11] MEDS ORDERED: DICYCLOMINE HCL LIQ 10 MG/5 ML UDC PO ONE (00:15)
[2021-09-11] MEDS ORDERED: LIDOCAINE VISCUS 2% 15 ML UDC MM ONE (00:15)
[2021-09-11] MEDS ORDERED: ASPIRIN 81 MG TAB.CHEW PO ONE (00:15)
[2021-09-11] MEDS ORDERED: MAG HYDROX/AL HYDROX/SIMETH 30 ML LIQUID UDC PO ONE (00:15)
[2021-09-11 00:19] LABS: HEMATOCRIT 36.8 % (31.2-41.9); MEAN CORPUSCULAR HEMOGLOBIN 30.6 uug (24.7-32.8); MEAN CORPUSCULAR VOLUME 90.4 fL (75.5-95.3); PLATELET COUNT (AUTO) 169 K/uL (179-408)
[2021-09-11] MEDS ORDERED: DICYCLOMINE HCL LIQ 10 MG/5 ML UDC ONE (00:23)
[2021-09-11] MEDS ORDERED: LIDOCAINE VISCUS 2% 15 ML UDC ONE (00:23)
[2021-09-11] MEDS ORDERED: MAG HYDROX/AL HYDROX/SIMETH 30 ML LIQUID UDC ONE (00:23)
[2021-09-11] MEDS ORDERED: ASPIRIN 81 MG TAB.CHEW ONE (00:23)
[2021-09-11 00:29] LABS: CARBON DIOXIDE 28 mmol/L (21-32); CHLORIDE 106 mmol/L (98-107); CREATININE 0.8 mg/dL (0.6-1.3); GLUCOSE 98 mg/dL (74-106); POTASSIUM 3.5 mmol/L (3.5-5.1); UREA NITROGEN, BLOOD 12 mg/dL (7-18)
[2021-09-11] MEDS ORDERED: BUPIVACAINE PF 0.5% 30 ML VIAL ONE (00:39)
[2021-09-11 00:45] LABS: ALANINE AMINOTRANSFERASE 23 U/L (14-59); ALKALINE PHOSPHATASE 63 U/L (50-136); ASPARTATE AMINOTRANSFERASE 16 U/L (15-37); BILIRUBIN,DIRECT 0.1 mg/dL (0.0-0.2); BILIRUBIN,TOTAL 0.6 mg/dL (0.2-1.0); TOTAL PROTEIN, SERUM 7.5 g/dL (6.4-8.2)
[2021-09-11] MEDS ORDERED: ONDANSETRON ODT 4 MG TAB.RAPDIS SL ONE ×2 (00:45→02:45)
[2021-09-11] MEDS ORDERED: BUPIVACAINE PF 0.5% 30 ML VIAL TP ONE (00:45)
[2021-09-11] MEDS ORDERED: MISCELLANEOUS MED SQ ONE (00:45)
[2021-09-11] MEDS ORDERED: ONDANSETRON ODT 4 MG TAB.RAPDIS ONE ×2 (00:46→02:27)
--- NOTE | 2021-09-11 00:55 | NUR ---
Ultrasound at bedside.
--- NOTE | 2021-09-11 01:02 | NUR ---
Kenalog is not available in the ER. Called [facility] Operations [facility] and they were not able to find this medication.
[2021-09-11] MEDS ORDERED: OXYCODONE/APAP 5-325 MG TABLET ONE (02:03)
[2021-09-11] MEDS ORDERED: OXYCODONE/APAP 5-325 MG TABLET PO ONE (02:15)
[2021-09-11] MEDS ORDERED: HYDR-4209 PO (02:27)
[2021-09-11] MEDS ORDERED: LANS30CA54 PO (02:27)
--- NOTE | 2021-09-11 07:00 | NUR ---
Received pt awake in bed, alert and orientedx4. No complaints of pain/discomfort at this time. Vitals stable.
--- NOTE | 2021-09-11 08:26 | NUR ---
Per MD, cancelled order for kenalog injection.
--- NOTE | 2021-09-11 08:50 | NUR ---
Pt was given extensive written and verbal ACI and given follow up referrals. Sling placed to LUE per pt request, CSM intact.
[2021-09-11 09:05] VITALS: BP 120/80
--- NOTE | 2021-09-11 09:05 | NUR ---
Patient discharged to home in stable condition. Written and verbal after care instructions given. Patient verbalizes understanding of instructions. Stressed follow up or return to ER for worsening s/s.
== END 2021-09-11 09:06 | disposition home or self-care (01) ==
LOC: ER 23:49
DX: R10.13 Epigastric pain (principal); K21.9 Gastro-esophageal reflux disease without esophagitis; R94.31 Abnormal electrocardiogram [ECG] [EKG]; M25.512 Pain in left shoulder; M25.532 Pain in left wrist; Z86.718 Personal history of other venous thrombosis and embolism; Z79.01 Long term (current) use of anticoagulants; M25.812 Other specified joint disorders, left shoulder; M41.9 Scoliosis, unspecified
CPT/HCPCS: 20550; 36415; 71045; 73020; 80048; 80076; 83880; 84484 ×2; 85025; 93005; 93971; 99285; J3490; Q0162

== ENCOUNTER 2022-12-22 15:00 | Emergency (ER) | payer OTHER ==
[~2022-12-22] VITALS: Ht 165.1 cm; Wt 68.0 kg
[~2022-12-22 15:00] MED LIST changes: +HYDR-4209 PO; +LANS30CA54 PO
[2022-12-22 15:29] VITALS: O2SAT 98
== END 2022-12-22 17:12 | disposition home or self-care (01) ==
LOC: ER 15:00
DX: G58.8 Other specified mononeuropathies (principal); G43.909 Migraine, unspecified, not intractable, without status migrainosus; K21.9 Gastro-esophageal reflux disease without esophagitis; Z86.73 Personal history of transient ischemic attack (TIA), and cerebral infarction without residual deficits; Z79.899 Other long term (current) drug therapy
CPT/HCPCS: A4663

== ENCOUNTER 2023-03-28 11:14 | Emergency (ER) | payer OTHER ==
[~2023-03-28] VITALS: Ht 165.1 cm; Wt 66.7 kg
[2023-03-28] MEDS ORDERED: AZITHROMYCIN 250 MG TABLET ONE (11:45)
[2023-03-28] MEDS ORDERED: AZITHROMYCIN 250 MG TABLET PO ONE (11:45)
[2023-03-28] MEDS ORDERED: AZIT250T13 PO (12:42)
[2023-03-28 12:50] VITALS: BP 141/90; O2SAT 97
== END 2023-03-28 12:57 | disposition home or self-care (01) ==
LOC: ER 11:14
DX: J20.9 Acute bronchitis, unspecified (principal); G43.909 Migraine, unspecified, not intractable, without status migrainosus; R07.89 Other chest pain; K21.9 Gastro-esophageal reflux disease without esophagitis; Z79.2 Long term (current) use of antibiotics; Z79.899 Other long term (current) drug therapy; Z20.822 Contact with and (suspected) exposure to COVID-19
CPT/HCPCS: 71046; Q0144

== ENCOUNTER 2023-07-16 20:23 | Emergency (ER) | payer OTHER ==
[~2023-07-16] VITALS: Ht 165.1 cm; Wt 77.1 kg
[~2023-07-16 20:23] MED LIST changes: +AZIT250T13 PO
[2023-07-16] MEDS: ACETAMINOPHEN ES 500 MG TABLET PO ONE (20:50)
[2023-07-16] MEDS: ALBUTEROL SULFATE 2.5 MG/3 ML NEBU NEB ONE (20:56)
[2023-07-16] MEDS: IPRATROPIUM BROMIDE 0.5 MG/2.5 ML NEBU NEB ONE (20:56)
[2023-07-16 21:00] VITALS: O2SAT 97
[2023-07-16] MEDS ORDERED: ALBUTEROL SULFATE 2.5 MG/3 ML NEBU ONE ×2 (21:00)
[2023-07-16] MEDS ORDERED: IPRATROPIUM BROMIDE 0.5 MG/2.5 ML NEBU ONE (21:00)
[2023-07-16 21:07] LABS: BASOPHILS % (AUTO) 0.4 % (0.0-2.0); EOSINOPHILS # (AUTO) 0.1 K/uL (0.0-0.7); EOSINOPHILS % (AUTO) 1.1 % (0.0-7.0); HEMATOCRIT 36.9 % (31.2-41.9); HEMOGLOBIN 12.6 g/dL (10.9-14.3); LYMPHOCYTES # (AUTO) 2.3 K/uL (0.8-4.8); LYMPHOCYTES % (AUTO) 24.1 % (20.5-51.5); MEAN CORPUSCULAR HEMOGLOBIN 30.3 uug (24.7-32.8); MEAN CORPUSCULAR HGB CONC 34 g/dL (32.3-35.6); MEAN CORPUSCULAR VOLUME 88.9 fL (75.5-95.3); MONOCYTES # (AUTO) 0.8 K/uL (0.1-1.30); MONOCYTES % (AUTO) 7.9 % (0.0-11.0); NEUTROPHILS # (AUTO) 6.4 K/uL (1.8-8.9); NEUTROPHILS % (AUTO) 66.5 % (38.5-71.5); PLATELET COUNT (AUTO) 173 K/uL (179-408); RED BLOOD CELL COUNT(AUTO) 4.15 MIL/uL (3.63-4.92); RED CELL DISTRIBUTION WIDTH 14.6 % (12.3-17.7); WHITE BLOOD COUNT (AUTO) 9.7 K/uL (3.8-11.8)
[2023-07-16 21:11] VITALS: O2SAT 98
[2023-07-16 21:15] VITALS: O2SAT 99
[2023-07-16 21:15] LABS: CALCIUM 8.8 mg/dL (8.5-10.1); CARBON DIOXIDE 28 mmol/L (21-32); CHLORIDE 105 mmol/L (98-107); CREATININE 0.6 mg/dL (0.6-1.3); GLUCOSE 96 mg/dL (74-106); POTASSIUM 3.8 mmol/L (3.5-5.1); SODIUM SERUM 140 mmol/L (136-145); UREA NITROGEN, BLOOD 10 mg/dL (7-18)
[2023-07-16 21:28] LABS: ALANINE AMINOTRANSFERASE 19 U/L (14-59); ALBUMIN 3.3 g/dL (3.4-5.0); ALKALINE PHOSPHATASE 82 U/L (50-136); ASPARTATE AMINOTRANSFERASE 11 U/L (15-37); BILIRUBIN,DIRECT 0.1 mg/dL (0.0-0.2); BILIRUBIN,TOTAL 0.5 mg/dL (0.2-1.0); NT-PRO BNP 44 pg/mL (0-125); TOTAL PROTEIN, SERUM 6.9 g/dL (6.4-8.2)
[2023-07-16] MEDS ORDERED: IOHEXOL 350 100 ML INFUS..BTL ONE (21:57)
[2023-07-16] MEDS ORDERED: IV NORMAL SALINE 250 ML IV ONE (21:57)
[2023-07-16] MEDS ORDERED: SWABABLE VALVE TRANSFER SET EA MC ONE (21:57)
[2023-07-16] MEDS ORDERED: METH4TAB3 PO (23:32)
[2023-07-16] MEDS ORDERED: ALBU18HF2 INH (23:32)
[2023-07-16] MEDS ORDERED: predniSONE 20 MG TABLET ONE (23:34)
[2023-07-16] MEDS: predniSONE 20 MG TABLET PO ONE (23:36)
[2023-07-16 23:40] VITALS: BP 136/83; O2SAT 98
[2023-08-08] MEDS ORDERED: CYCL10TA9 PO (00:25)
[2023-08-08] MEDS ORDERED: NAPR-1009 PO (00:25)
== END 2023-07-16 23:48 | disposition home or self-care (01) ==
LOC: ER 20:26
DX: J20.9 Acute bronchitis, unspecified (principal); R03.0 Elevated blood-pressure reading, without diagnosis of hypertension; R07.89 Other chest pain; R06.02 Shortness of breath; R05.9 Cough, unspecified; G43.909 Migraine, unspecified, not intractable, without status migrainosus; K21.9 Gastro-esophageal reflux disease without esophagitis; Z98.890 Other specified postprocedural states; Z79.899 Other long term (current) drug therapy
CPT/HCPCS: 36415; 71045; 71275; 84484; 85025; 85730; 93005; A4606; A4663; A9150; J3590; J7512; Q9967